=== PATIENT | female | born 1970 | race Caucasian/White ===

== ENCOUNTER 2017-03-12 17:01 | Emergency (ER) | payer BC ==
[~2017-03-12] VITALS: Ht 170.2 cm; Wt 116.6 kg
[2017-03-12] MEDS ORDERED: DELTASONE20 M1 PO (18:55)
[2017-03-12] MEDS ORDERED: KEFLEX500 MG PO (18:55)
[2017-03-12] MEDS ORDERED: PEPCID20 MG PO (18:55)
[2017-03-12] MEDS ORDERED: EPIPEN ADU0.3 MG/0.3 IM (21:42)
[2017-03-12 22:30] VITALS: BP 120/63
== END 2017-03-13 | disposition home or self-care (01) ==
LOC: EME 17:01
DX: T63.441A Toxic effect of venom of bees, accidental (unintentional), initial encounter (principal); W57.XXXA Bitten or stung by nonvenomous insect and other nonvenomous arthropods, initial encounter
CPT/HCPCS: 99281; 99285; J1200; J2930; J7040; J7512; S0028

== ENCOUNTER → 2017-04-17 | Outpatient (CLI) | payer BC ==
[~2017-04-17] MED LIST: DELTASONE20 M1 PO; EPIPEN ADU0.3 MG/0.3 IM; KEFLEX500 MG PO; PEPCID20 MG PO
== END | disposition home or self-care (01) ==
LOC: CDC 08:11
DX: Z01.810 Encounter for preprocedural cardiovascular examination (principal); E66.01 Morbid (severe) obesity due to excess calories
CPT/HCPCS: 93000

== ENCOUNTER → 2017-04-28 | Outpatient (CLI) | payer BC ==
[~2017-04-28] VITALS: Ht 167.6 cm; Wt 109.3 kg
[~2017-04-28] MED LIST changes: +BIOTIN 5000MCG PO; +MULTIVITAMIN1 EAC2 PO; +REQUIP1 MG PO; +REQUIP4 MG PO; +SEROQUEL12.5 MG PO; +VITAMIN D31000 UNI2 PO
== END | disposition home or self-care (01) ==
LOC: AMB 14:28
PROC: 0DJ08ZZ Inspection of Upper Intestinal Tract, Via Natural or Artificial Opening Endoscopic (ICD-10-PCS; principal; 2017-04-28)
DX: K31.7 Polyp of stomach and duodenum (principal); K21.9 Gastro-esophageal reflux disease without esophagitis; E66.01 Morbid (severe) obesity due to excess calories; Z68.39 Body mass index [BMI] 39.0-39.9, adult; G47.30 Sleep apnea, unspecified; Z88.1 Allergy status to other antibiotic agents